=== PATIENT | female | born 1960 ===

== ENCOUNTER 2018-07-16 11:04 | Emergency (ER) | payer OTHER ==
[~2018-07-16] VITALS: Ht 154.9 cm; Wt 54.4 kg
[2018-07-16] MEDS ORDERED: AMBIEN CR12.5 MG PO (11:43)
[2018-07-16] MEDS ORDERED: CHANTIX1 MG PO (11:44)
[2018-07-16] MEDS ORDERED: DICLOFENAC SODI50 MG PO (15:33)
== END 2018-07-16 15:59 | disposition home or self-care (01) ==
LOC: ER 11:04
DX: D25.9 Leiomyoma of uterus, unspecified (principal); R10.32 Left lower quadrant pain

== ENCOUNTER 2018-09-26 12:19 | Outpatient (CLI) | payer OTHER ==
[~2018-09-26 12:19] MED LIST: AMBIEN CR12.5 MG PO; CHANTIX1 MG PO; DICLOFENAC SODI50 MG PO
== END 2018-09-26 12:28 | disposition home or self-care (01) ==
LOC: RAD 12:19
DX: Z01.818 Encounter for other preprocedural examination (principal); R10.2 Pelvic and perineal pain

== ENCOUNTER 2018-10-15 14:35 | Emergency (ER) | payer OTHER ==
[~2018-10-15] VITALS: Ht 154.9 cm; Wt 54.4 kg
== END 2018-10-15 21:22 | disposition home or self-care (01) ==
LOC: ER 14:35
DX: K52.89 Other specified noninfective gastroenteritis and colitis (principal); R10.2 Pelvic and perineal pain